=== PATIENT | female | born 1995 | race Caucasian/White ===

== ENCOUNTER 2016-10-31 22:50 | Emergency (ER) | payer OTHER ==
[~2016-10-31] VITALS: Ht 162.6 cm; Wt 60.5 kg
[2016-10-31 22:54] VITALS: TEMP 36.4; Ht 162.6 cm; Wt 60.5 kg
[2016-10-31] MEDS ORDERED: ONDANSETRON INJ 2 MG/ML 2 ML VIAL IV STA (23:11)
[2016-10-31] MEDS ORDERED: SODIUM CHLORIDE 0.9% 1000ML 2,000 ML IV STA (23:11)
[2016-10-31] MEDS ORDERED: DiphenhydrAMINE HCL 50 MG/ML VIAL IV STA (23:11)
--- NOTE | 2016-10-31 23:23 | EMERGENCY ROOM VISIT NOTE ---
History Report prepared by Adelaida: Evelyne Oliva Under the Supervision of: Dr. Luis Dougherty M.D. First contact with patient: 23:07 Chief Complaint: ABDOMINAL PAIN Stated Complaint: STOMACH PAIN, VOMITING, TINGLING HANDS/FEET History of Present Illness The patient is a 21 year old female who presents to the Emergency Room with complaints of persistent nausea and vomiting starting a few hours ago. The patient also reports epigastric abdominal pain and diarrhea. She took Pepto without relief. She has worsening symptoms with eating and drinking. The patient also complains of lightheadedness. She denies fevers, blood in stool/ vomit, lower extremity swelling, rashes, or any other complaints. She denies any chance of . 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 She does not have any medical problems. Source of History: patient Onset: a few hours ago Position: other (global) Quality: other (nausea and vomiting) Timing: other (persistent) Modifying Factors (Worsening): eating, drinking Modifying Factors (Relieving): other (Pepto without relief) Associated Symptoms: + abdominal pain, + diarrhea, No fevers, No rash Review of Systems See HPI for pertinent positives & negatives. A total of 10 systems reviewed and were otherwise negative. Past Medical & Surgical Medical Problems: (1) No Known Active Medical Problems Family History Patient reports no known family medical history. Social History Smoking Status: Never Smoker Marital Status: single Occupation Status: student Current/Historical Medications No Active Prescriptions or Reported Meds Allergies Coded Allergies: No Known Allergies (Unverified , 10/31/16) Physical Exam Vital Signs Date Time Temp Pulse Resp B/P Pulse Ox O2 Delivery O2 Flow Rate FiO2 11/01/16 01:30 88 16 113/57 100 11/01/16 00:52 84 16 117/67 100 Room Air 10/31/16 22:54 36.4 90 18 107/67 100 Room Air Physical Exam GENERAL: Patient is anxious appearing and in moderate distress. HEENT: No acute trauma, normocephalic atraumatic, mucous membranes dry, no nasal congestion, no scleral icterus. NECK: No stridor, no adenopathy, no meningismus, trachea is midline. LUNGS: No dyspnea. Clear to auscultation and equal bilaterally. No wheeze, no rhonchi. HEART: Mildly tachycardic rate and regular rhythm. No murmurs, rubs, gallops appreciated. ABDOMEN: Soft, vague epigastric tenderness to palpation, bowel sounds positive, no masses appreciated, no peritonitis. BACK: No midline tenderness, no CVA tenderness EXTREMITIES: Normal motion all extremities, no cyanosis, no edema. NEUROLOGIC: Alert and oriented, no acute motor or sensory deficits, no focal weakness, cranial nerves grossly intact. SKIN: No rash, no jaundice, no diaphoresis. Medical Decision & Procedures ER Provider Diagnostic Interpretation: CT results as stated below per interpretation by me and the radiologist: US RUQ No gallstones or biliary ductal dilatation. Radiologist: Edy Rashid MD Laboratory Results 10/31/16 23:30 Red Blood Count 5.22, Mean Corpuscular Volume 88.5, Mean Corpuscular Hemoglobin 32.2, Mean Corpuscular Hemoglobin Concent 36.4, Mean Platelet Volume 9.9, Neutrophils (%) (Auto) 88.9, Lymphocytes (%) (Auto) 6.2, Monocytes (%) (Auto) 4.0, Eosinophils (%) (Auto) 0.4, Basophils (%) (Auto) 0.2, Neutrophils # (Auto) 9.56, Lymphocytes # (Auto) 0.67, Monocytes # (Auto) 0.43, Eosinophils # (Auto) 0.04, Basophils # (Auto) 0.02 10/31/16 23:30 Test 10/31/16 23:30 10/31/16 23:55 White Blood Count 10.75 K/uL (4.8-10.8) Red Blood Count 5.22 M/uL (4.2-5.4) Hemoglobin 16.8 g/dL (12.0-16.0) Hematocrit 46.2 % (37-47) Mean Corpuscular Volume 88.5 fL (80-100) Mean Corpuscular Hemoglobin 32.2 pg (25-34) Mean Corpuscular Hemoglobin Concent 36.4 g/dl (32-36) Platelet Count 252 K/uL (130-400) Mean Platelet Volume 9.9 fL (7.4-10.4) Neutrophils (%) (Auto) 88.9 % Lymphocytes (%) (Auto) 6.2 % Monocytes (%) (Auto) 4.0 % Eosinophils (%) (Auto) 0.4 % Basophils (%) (Auto) 0.2 % Neutrophils # (Auto) 9.56 K/uL (1.4-6.5) Lymphocytes # (Auto) 0.67 K/uL (1.2-3.4) Monocytes # (Auto) 0.43 K/uL (0.11-0.59) Eosinophils # (Auto) 0.04 K/uL (0-0.5) Basophils # (Auto) 0.02 K/uL (0-0.2) RDW Standard Deviation 38.4 fL (36.4-46.3) RDW Coefficient of Variation 11.9 % (11.5-14.5) Immature Granulocyte % (Auto) 0.3 % Immature Granulocyte # (Auto) 0.03 K/uL (0.00-0.02) Anion Gap 17.0 mmol/L (3-11) Est Creatinine Clear Calc Drug Dose 77.8 ml/min Estimated GFR () 94.9 Estimated GFR (Non- 81.9 BUN/Creatinine Ratio 16.0 (10-20) Calcium Level 9.7 mg/dl (8.5-10.1) Total Bilirubin 3.6 mg/dl (0.2-1) Direct Bilirubin 0.2 mg/dl (0-0.2) Aspartate Amino Transf (AST/SGOT) 17 U/L (15-37) Alanine Aminotransferase (ALT/SGPT) 25 U/L (12-78) Alkaline Phosphatase 99 U/L (45-117) Total Protein 8.1 gm/dl (6.4-8.2) Albumin 4.7 gm/dl (3.4-5.0) Lipase 173 U/L (73-393) Urine Color DK YELLOW Urine Appearance CLOUDY (CLEAR) Urine pH 7.0 (4.5-7.5) Urine Specific Dexter 1.037 (1.000-1.030) Urine Protein TRACE (NEG) Urine Glucose (UA) NEG (NEG) Urine Ketones 4+ (NEG) Urine Occult Blood NEG (NEG) Urine Nitrite NEG (NEG) Urine Bilirubin NEG (NEG) Urine Urobilinogen NEG (NEG) Urine Leukocyte Esterase TRACE (NEG) Urine WBC (Auto) 5-10 /hpf (0-5) Urine RBC (Auto) 5-10 /hpf (0-4) Urine Hyaline Casts (Auto) 5-10 /lpf (0-5) Urine Epithelial Cells (Auto) >30 /lpf (0-5) Urine Bacteria (Auto) NEG (NEG) Urine Renal Epithelial Cells 0-5 /lpf (0-5) Urine Mucus PRESENT (NONE PRSENT) Urine Test NEG (NEG) Laboratory results as reviewed by me. Medications Administered Medications (Trade) Dose Ordered Sig/Shanell Route Start Time Stop Time Status Last Admin Dose Admin Sodium Chloride (Nss 1000ml) 2,000 ml @ 999 mls/hr Q2H1M STAT IV 10/31/16 23:11 11/01/16 01:11 DC 10/31/16 23:34 999 MLS/HR Ondansetron HCl (Zofran Inj) 4 mg NOW STAT IV 10/31/16 23:11 10/31/16 23:13 DC 10/31/16 23:34 4 MG Diphenhydramine HCl (Benadryl Inj) 25 mg NOW STAT IV 10/31/16 23:11 10/31/16 23:13 DC 10/31/16 23:34 25 MG Ondansetron HCl (ZOFRAN ODT 4MG Home Pack) 1 homepack UD ONCE PO 11/01/16 01:30 11/01/16 01:31 DC 11/01/16 01:30 1 HOMEPACK Promethazine HCl (Phenergan 25MG Home Pack) 1 homepack UD ONCE PO 11/01/16 01:30 11/01/16 01:31 DC 11/01/16 01:30 1 HOMEPACK ED Course 2307: The patient was evaluated in room A02. A complete history and physical exam was performed. 2311: Benadryl Inj 25 mg IV, Zofran Inj 4 mg IV, Sodium Chloride 2000 ml @ 999 mls/hr IV 0002: I reevaluated the patient. She thinks that she might have had elevated bilirubin in the past when she was on the medication Accutane. She also states that her grandfather may have had elevated bilirubin but does not know of any familial Gilbert's disease. 0121: Reevaluated the patient who feels much better. Discussed results and discharge instructions: She verbalized understanding and agreement. The patient is ready for discharge. 0130: Promethazine HCl 1 homepack PO, Ondansetron HCl 1 homepack PO Medical Decision Differential: Gastroenteritis, Food Borne, Esophageal Perforation, , Electrolyte Abnormality, Dehydration, Intraabdominal Infection, UTI/ Pyelonephritis, Bowel Obstruction, Biliary Pathology, amongst other pathology entertained. Pleasant clearly dehydrated 21 yr old female with nausea, vomiting and diarrhea. Severe norovirus currently diffusely through local population which this seems similar to. She has no significant TTP on abdominal exam and feels vastly improved with zofran and 2 L NSS bolus. Labs normal other than elevated Bili. She believes that this has previously been noted on labs (as well as in her Grandfather) but that she has never had US liver or further testing. [place] it reasonable to get US RUQ which was unremarkable. She is still feeling well and in no distress. Will send home with zofran/phenergan. She does not have surgical abdomen by examination and given no fever nor WBC elevation I feel that CT would be unreasonable at this time. Stable and wishing to go home. Advised follow up with PCP to discuss her elevated Bili in future (likely Gilbert like as it sounds familial in nature). Discussed symptoms requiring RTED. Impression Primary Impression: Nausea, vomiting and diarrhea Additional Impressions: Dehydration Total bilirubin, elevated Scribe Attestation The scribe's documentation has been prepared under my direction and personally reviewed by me in its entirety. I confirm that the note above accurately reflects all work, treatment, procedures, and medical decision making performed by me. Departure Information Dispostion Home / Self-Care Prescriptions No Active Prescriptions or Reported Meds Referrals [facility] Forms HOME CARE DOCUMENTATION FORM, IMPORTANT VISIT INFORMATION, My [facility] Patient Instructions A Signature Page, ED Gastroenteritis Viral Problem Qualifiers
[2016-10-31 23:38] LABS: BASO % 0.2 %; BASO ABS # 0.02 K/uL (0-0.2); COMPLETE YES; EOS % 0.4 %; HEMATOCRIT 46.2 % (37-47); IG% 0.3 %; LYMPH % 6.2 %; LYMPH ABS # 0.67 K/uL (1.2-3.4); MEAN CELL VOLUME 88.5 fL (80-100); MEAN CORPUSCULAR HEMOGLOBIN 32.2 pg (25-34); MEAN CORPUSCULAR HGB CONC 36.4 g/dl (32-36); MEAN PLATELET VOLUME 9.9 fL (7.4-10.4); NEUT % 88.9 %; PLATELET COUNT 252 K/uL (130-400); RED BLOOD COUNT 5.22 M/uL (4.2-5.4); WHITE BLOOD COUNT 10.75 K/uL (4.8-10.8)
[2016-10-31 23:56] LABS: CALCIUM 9.7 mg/dl (8.5-10.1); CREATININE 0.98 mg/dl (0.60-1.20); POTASSIUM 3.9 mmol/L (3.5-5.1)
[2016-11-01 00:28] LABS: URINE APPEARANCE CLOUDY (CLEAR); URINE COLOR DK YELLOW; URINE EPITHELIAL CELL AUTO >30 /lpf (0-5); URINE NITRITE NEG (NEG); URINE SPECIFIC GRAVITY 1.037 (1.000-1.030); UROBILINOGEN NEG (NEG); ZZUR CULT IF INDIC CLEAN CATCH NO
[2016-11-01 00:31] LABS: MANUAL MICROSCOPIC REQUIRED? NO; REVIEW REQ? YES; URINE BILIRUBIN NEG (NEG)
[2016-11-01 00:40] LABS: URINE MUCUS PRESENT (NONE PRSENT)
[2016-11-01 01:30] VITALS: BP 113/57; PULSE 88; O2SAT 100
[2016-11-01] MEDS ORDERED: PHENERGAN 25MG HOMEPACK PO ONE (01:30)
[2016-11-01] MEDS ORDERED: ONDANSETRON HOME PACK 4MG OD TAB PO ONE (01:30)
--- NOTE | 2016-11-01 07:00 | DIAGNOSTIC IMAGING REPORT ---
BILIARY ULTRASOUND CLINICAL HISTORY: Elevated bilirubin. Nausea and vomiting. COMPARISON STUDY: No previous studies for comparison. FINDINGS: The pancreas appears sonographically normal. The liver appears sonographically normal. There is no ductal dilatation. The gallbladder appears sonographically normal. The common bile duct measures 2 mm. There is no right-sided hydronephrosis. IMPRESSION: Normal biliary ultrasound. Electronically signed by: Abner Melo M.D. 11/01/2016 6:58 AM Dictated Date/Time: 11/01/2016 6:57 AM
== END 2016-11-01 01:30 | disposition home or self-care (01) ==
LOC: C.EDB 22:51 → C.EDA 11-01 01:30
DX: R11.2 Nausea with vomiting, unspecified (principal); E86.0 Dehydration; R79.89 Other specified abnormal findings of blood chemistry

== ENCOUNTER → 2017-07-12 | Outpatient (CLI) | payer OTHER ==
--- NOTE | 2017-07-12 14:31 | ECHOCARDIOGRAM REPORT ---
*NOTICE TO RECEIVING DEMOCRAT AGENCY This information is strictly Confidential and protected under [place] law. [place] law prohibits you from making any further disclosure of this information unless further disclosure is expressly permitted by the written consent of the person to whom it pertains or is authorized by law. A general authorization for the release of medical or other information is not sufficient for this purpose. Hospital accepts no responsibility if the information is made available to any other person, INCLUDING THE PATIENT. Interpretation Summary * Name: JAGJIT GUILLAUME Study Date: 07/12/2017 01:01 PM * Patient Location: [facility] HR: 73 * : 1995 (M/d/yyyy) Gender: Female Height: 54 in * Age: 22 yrs Ethnicity: CA Weight: 135 lb * Ordering Physician: Roma Ornelas * Referring Physician: Roma Ornelas * Performed By: Irina George RCS * * Reason For Study: Murmur * BSA: 1.5 m2 * -- Conclusions -- * 1. Normal left ventricular size and systolic function. EF 60-65%. No regional wall motion abnormalities. No left ventricular hypertrophy. No significant diastolic dysfunction. * 2. No significant valvular abnormalities. * 3. No prior study available for comparison. Procedure Details * Left Ventricle Normal left ventricular size and systolic function. EF 60-65%. No regional wall motion abnormalities. No left ventricular hypertrophy. No significant diastolic dysfunction. * Right Ventricle The right ventricle is normal in size and function. The right ventricular systolic function is normal as assessed by tricuspid annular plane systolic excursion (TAPSE) (normal >1.5 cm). * Atria The left atrial size is normal. Right atrial size is normal. There is no evidence of atrial septal defect, but resolution does not allow assessment for a patent foramen ovale. * Mitral Valve The mitral valve leaflets appear normal. There is no evidence of stenosis, fluttering, or prolapse. There is no mitral regurgitation noted. * Tricuspid Valve The tricuspid valve is not well visualized, but is grossly normal. There is no tricuspid stenosis. Significant tricuspid regurgitation is absent. * Aortic Valve The aortic valve is normal in structure and function. No hemodynamically significant valvular aortic stenosis. There is no significant aortic regurgitation. * Pulmonic Valve The pulmonary valve is inadequately visualized, but the Doppler data is adequate for interpretation. There is no pulmonic valvular stenosis. There is no significant pulmonary regurgitation. * Great Vessels The aortic root is normal size. Aortic arch of normal dimension. * Pericardium/Pleural There is no pericardial effusion. * Great Vessels IVC normal in size. * * MMode 2D Measurements and Calculations * RVDd 2.8 cm * IVSd 0.72 cm * * LVIDd 4.2 cm * LVIDs 2.4 cm * LVPWd 0.83 cm * * IVS/LVPW 0.87 * FS 41.8 % * EDV(Teich) 78.3 ml * ESV(Teich) 21.0 ml * EF(Teich) 73.2 % * * EDV(cubed) 73.8 ml * ESV(cubed) 14.5 ml * EF(cubed) 80.3 % * * LV mass(C)d 97.2 grams * LV mass(C)dI 66.4 grams/m\S\2 * * SV(Teich) 57.3 ml * SI(Teich) 39.2 ml/m\S\2 * SV(cubed) 59.3 ml * SI(cubed) 40.5 ml/m\S\2 * * Ao root diam 2.6 cm * Ao root area 5.4 cm\S\2 * * LVAd ap4 25.5 cm\S\2 * LVLd ap4 8.0 cm * EDV(MOD-sp4) 67.4 ml * EDV(sp4-el) 69.2 ml * LVAs ap4 13.0 cm\S\2 * LVLs ap4 6.4 cm * ESV(MOD-sp4) 22.4 ml * ESV(sp4-el) 22.6 ml * EF(MOD-sp4) 66.8 % * EF(sp4-el) 67.4 % * * LVAd ap2 22.4 cm\S\2 * LVLd ap2 8.0 cm * EDV(MOD-sp2) 54.2 ml * EDV(sp2-el) 53.3 ml * LVAs ap2 12.4 cm\S\2 * LVLs ap2 6.4 cm * ESV(MOD-sp2) 20.7 ml * ESV(sp2-el) 20.4 ml * EF(MOD-sp2) 61.7 % * EF(sp2-el) 61.7 % * * LVLd %diff 0.36 % * EDV(MOD-bp) 60.1 ml * LVLs %diff 0.62 % * ESV(MOD-bp) 21.4 ml * EF(MOD-bp) 64.4 % * * SV(MOD-sp4) 45.0 ml * SI(MOD-sp4) 30.8 ml/m\S\2 * * SV(MOD-sp2) 33.5 ml * SI(MOD-sp2) 22.9 ml/m\S\2 * * SV(MOD-bp) 38.8 ml * SI(MOD-bp) 26.5 ml/m\S\2 * * SV(sp4-el) 46.7 ml * SI(sp4-el) 31.9 ml/m\S\2 * * SV(sp2-el) 32.9 ml * SI(sp2-el) 22.5 ml/m\S\2 * * * * Doppler Measurements and Calculations * MV E max babak 88.8 cm/sec * MV A max babak 41.2 cm/sec * * MV E/A 2.2 * * MV dec time 0.15 sec * * Ao V2 max 152.0 cm/sec * Ao max PG 9.2 mmHg * Ao max PG (full) 2.1 mmHg * * LV V1 max PG 7.1 mmHg * LV V1 mean PG 3.4 mmHg * * LV V1 max 133.4 cm/sec * LV V1 mean 85.2 cm/sec * LV V1 VTI 27.0 cm * * * *
== END | disposition home or self-care (01) ==
LOC: C.CPL 12:43
PROVIDERS: ATTEND Physician Assistant Medical
DX: R01.1 Cardiac murmur, unspecified (principal)